=== PATIENT | female | born 1990 | race Caucasian/White ===

== ENCOUNTER 2025-01-04 12:47 | Emergency (ER) | payer BC, SELFPAY ==
[2025-01-04 12:57] VITALS: BP 131/87
[2025-01-04 13:21] LABS: Hematocrit 38.1 % (37.0-47.0); Hemoglobin 12.9 g/dL (12.0-16.0); Mean Corp Hgb Conc. 33.9 g/dL (33.0-37.0); Mean Corpuscular Volume 94.5 fL (81.0-99.0); Nucleated Red Blood Cells % 0 %; Platelet Count 231 10^3/uL (130-400); Red Cell Dist. Width 11.9 % (11.5-14.5)
[2025-01-04 13:25] LABS: ALT (SGPT) 14 U/L (0-35); AST (SGOT) 23 U/L (14-36); Albumin 4.5 g/dl (3.5-5.0); Alkaline Phosphatase 37 U/L (38-126); Blood Urea Nitrogen 11 mg/dl (7-17); Calcium 9.1 mg/dl (8.4-10.2); Carbon Dioxide 29 mmol/L (22-30); Chloride 105 mmol/L (98-107); Glucose 137 mg/dl (70-99); Potassium 3.8 mmol/L (3.5-5.1); Sodium 138 mmol/L (135-145); Total Protein 7.3 g/dl (6.3-8.2); eGFR > 60.00
[2025-01-04 13:37] LABS: Troponin I < 0.012 ng/ml
[2025-01-04 16:20] VITALS: BP 119/85
--- NOTE | 2025-01-04 16:43 | ED.GENMED ---
History of Present Illness
General
Chief Complaint: Heart Rate Problem
Source: patient
Exam Limitations: none
Time Seen by Provider: 01/04/25 16:27
Nursing documentation reviewed up to this point in time: agreed with
History of Present Illness
History of Present Illness:
The patient is a 34-year-old female w hx, melanoma removed from back, presenting with chest pain. She reports that the pain is located centrally in the chest, began approximately three weeks ago, and was exacerbated during a recent trip to
[place]. The patient was in [place] from to Friday (December 30-January 02) and noted that while the pain initially waxed and waned, it became persistent and constant during the trip, especially on and Friday. The patient did not
take any medication for it. The pain seems to improve slightly with yawning or burping. While in , about 2 hours ago, besides the chest, and referred pain that radiates from mid chest to the left neck, some left facial numbness, left arm numbness,
left lower back, left lower abdominal area and legs. Leaving the grocery store earlier today, felt faint in the parking lot. Admits to feeling anxious but no history of anxiety. Denies SOB, abd pain, n/v/d/c.
Past History
Past History
ED Past Medical History: Cancer (melanoma removed from back)
Social History
Tobacco: Non-smoker
Alcohol: Occasional
Personal:
Living: with family
Employment: Employed
Review of Systems
Review of Systems
Allergies reviewed?: Yes
All Other Systems: ROS reviewed and negative except as documented in HPI and ROS
Constitutional: Denies fever or fatigue
Respiratory: Denies trouble breathing
Cardiac: Reports chest pain; Denies diaphoresis or palpitations
ABD/GI: Reports nausea (mild, intermittent, chest pain is somewhat improved with yawning and burping); Denies abdominal pain, vomiting, diarrhea or anorexia
: Denies dysuria, frequency or difficulty voiding
Musculoskeletal: Reports no symptoms
Skin: Reports no symptoms
Neurological: Reports numbness (Episodes of feeling faint; numbness in the face and along neural pathways radiating from neck to lower body, left side as noted in HPI)
Psychiatric: Reports anxiety (admits to feeling anxious)
Phy Exam
Physical Exam
Physical Exam:
GENERAL: No acute distress. A&Ox3.
CONSTITUTIONAL: Afebrile.
EYES: clear, conjunctivae normal
ENMT: moist mucus membranes, Pharynx nl
RESPIRATORY: Regular respirations, nonlabored, lungs clear.
CARDIOVASCULAR: Regular rate and rhythm, no murmurs, no rubs.
GI: Soft, nontender, normal BS
MUSCULOSKELETAL: Unable to reproduce pain with compression/palpation, Moves with ease. Well perfused.
SKIN: Warm, dry, pink
PSYCH: Normal mood and affect. Well kept, interactive and appropriate
NEUROLOGIC: Awake, alert and oriented. No focal neurological deficits
Course
Orders/Labs/Results
Orders:
Orders
01/04/25 12:48
EKG [Electrocardiogram (*1)] Urgent
Reason for Study: Palpitations
EKG- Treatment ONCE
01/04/25 13:06
CMP [Comprehensive Metabolic Panel] Urgent
Complete Blood Count/With Diff Urgent
Lyme Progressive Urgent
Comment: ADD ON
Troponin I Urgent
01/04/25 16:43
Add On- LAB Urgent
Tests Added?: Lyme progressive
01/04/25 16:49
D-Dimer Urgent
01/04/25 18:32
CR Chest - 2 Views Urgent
Comment:
Reason For Exam: chest pain
01/04/25 19:50
Pantoprazole [Protonix IV] 80 mg IV NOW STA
Abnormal Lab Results
01/04/25
13:06
RBC 4.03 L 10^6/uL
(4.20-5.40)
MCH 32.0 H pg
(27.0-31.0)
Glucose 137 H mg/dl
(70-99)
Alkaline Phosphatase 37 L U/L
(38-126)
01/04/25 13:06
01/04/25 13:06
Vital Signs
Initial and Last Documented VS:
Initial Vital Signs
Temp Pulse Resp BP Pulse Ox
98.0 F 86 16 131/87 99
01/04/25 12:57 01/04/25 12:57 01/04/25 12:57 01/04/25 12:57 01/04/25 12:57
Last Documented Vital Signs
Temp Pulse Resp BP Pulse Ox
98.0 F 65 18 112/81 100
01/04/25 12:57 01/04/25 19:58 01/04/25 19:58 01/04/25 19:58 01/04/25 19:58
MDM/Problems Addressed
Differential Diagnosis Includes:
1. Anxiety-related chest pain
2. Gastroesophageal reflux disease (GERD)
3. Costochondritis
4. Myocardial ischemia or infarction
5. Panic disorder
6. Pulmonary embolism
7. Aortic dissection
8. Pneumothorax
9. Pericarditis
10. Hyperventilation syndrome
11. MVP
MDM/Problems Addressed:
The patient is a 34-year-old female w hx, melanoma removed from back, presenting with chest pain. She reports that the pain is located centrally in the chest, began approximately three weeks ago, and was exacerbated during a recent trip to ""[place]. The patient was in [place] from to Friday (December 30-January 02) and noted that while the pain initially waxed and waned, it became persistent and constant during the trip, especially on and Friday. The patient did not
take any medication for it. The pain seems to improve slightly with yawning or burping. While in , about 2 hours ago, besides the chest, and referred pain that radiates from mid chest to the left neck, some left facial numbness, left arm numbness,
left lower back, left lower abdominal area and legs. Leaving the grocery store earlier today, felt faint in the parking lot. Admits to feeling anxious but no history of anxiety. Denies SOB, abd pain, n/v/d/c.
VSS, NAD
EKG NSR
CBC, CMP normal
Troponin normal
6:30 p.m.
D dimer normal
CXR NAD
Pt gets intermittent near fainting feelings, just experienced a fleeting episode while laying on stretcher. Referred to Cardiac hotline for more thorough evaluation.
Pt and are comfortable going home. Will call PCP tomorrow for f/u within the next week.
*Pulse Oximetry
SaO2: 100
Oxygen Mode of Delivery: Room air
Patient hypoxic: no
*EKG
EKG Intrepretation Date: 01/04/25
Interpretation: normal
Heart Rate: 94
Rate: normal
Rhythm: sinus
[place]: normal axis
Interval: normal interval
QRS Pattern: normal QRS
Ischemia: no ischemia
*Critical Care Note
Total Time (30-74mins, 75-104mins- exclusive of procedures): Not Applicable
ED Attending Note
-
Portions of this chart may have been created with voice recognition software.� Occasional wrong word or��sound alike� substitutions may have occurred due to the inherent limitations of voice recognition software.
Discharge Plan
Departure
Patient Disposition: Home (Routine Discharge)
Date of Disposition: 01/04/25
Time of Disposition: 19:42
Patient with high blood pressure during this ER visit?: No
Condition: Good
Discharge Problem:
Atypical chest pain
Instructions: Acid reflux and GERD in adults, Chest Pain [facility] Follow Up
Referrals:
Gonzalo Leal, DO [Active, Cardiology] - Next open appointment
NONE,* [Active, Internal Medicine]
Ole Aponte MD [Family Provider, Family Practice] - Follow up in 1 week
Activity Restrictions/Additional Instructions:
As we discussed, I sent a prescription to your pharmacy for Protonix to take 40 mg daily for the next 2 weeks and see if it helps for possible GERD
I also sent your information to the cardiology group and someone should be calling you in a day or two for an appointment.
Do not drive if you are having fainting feelings.
Call you PCP tomorrow and make follow up appointment for one week. Let him/her know if Protonix helps
Interventions
Interventions:
*Risk Screen - Suicide Last Done: 01/04/25 12:57
*Neglect/Abuse Screening Last Done: 01/04/25 12:57
*ED COVID-19 Vaccine History Last Done: 01/04/25 12:57
*Nursing Disposition Last Done: 01/04/25 20:02
ED- Cardiac Assessment Last Done: 01/04/25 16:30
ED- Pulmonary Assessment Last Done: 01/04/25 16:30
Discharge Date and Time
Discharge Date/Time: 01/04/25 20:02
Print Language: TELUGU
[2025-01-04 17:00] VITALS: BP 126/84
[2025-01-04 17:52] LABS: D-Dimer < 0.27 ug/mlFEU (0.00-0.50)
[2025-01-04 18:00] VITALS: BP 120/79
[2025-01-04] MEDS: PROTONIX IV 80 MG IV (19:53)
[2025-01-04 19:57] VITALS: BP 112/81
[2025-01-04 19:58] VITALS: BP 112/81
[2025-01-05 11:42] LABS: Lyme Antibody Screen, EIA Negative (Negative)
== END 2025-01-04 20:02 | disposition home or self-care (01) ==
LOC: EMR 12:47
PROVIDERS: Emergency Medicine; Registered Nurse; EMERGENCY PHYSICIAN Emergency Medicine; FAMILY PHYSICIAN Family Medicine
DX: R07.89 Other chest pain (principal); Z85.820 Personal history of malignant melanoma of skin
CPT/HCPCS: 99283; 71046; 80053; 84484; 85025; 85379; 86618; 93005